=== PATIENT | male | born 1955 | race Caucasian/White ===

== ENCOUNTER 2021-01-01 15:06 | Emergency (ER) | payer BC ==
[2021-01-01] MEDS ORDERED: Fentanyl 100 MCG/2 ML VIAL ONE (15:34)
[2021-01-01] MEDS ORDERED: Boostrix 0.5 ML (Tdap) VIAL ONE (15:35)
[2021-01-01] MEDS ORDERED: cefTRIAXone\\ROCEPHIN 1 GM VIAL ONE (16:15)
[2021-01-01] MEDS ORDERED: Lidocaine 1% (PF) 30 ML VIAL ONE (16:15)
== END 2021-01-01 17:46 | disposition home or self-care (01) ==
LOC: ERS 15:06
DX: S68.121A Partial traumatic metacarpophalangeal amputation of left index finger, initial encounter (principal); I10 Essential (primary) hypertension; F17.210 Nicotine dependence, cigarettes, uncomplicated; W27.0XXA Contact with workbench tool, initial encounter
CPT/HCPCS: 90471; 90715; 96372; J0696; J2001; J3010